=== PATIENT | male | born 1955 | race Caucasian/White ===

== ENCOUNTER 2016-09-17 22:52 | Emergency (ER) | payer MEDICAID ==
[2016-09-20 02:21] VITALS: BMI 26.3
== END 2016-09-17 23:45 | disposition home or self-care (01) ==
LOC: D.ER 22:52
DX: M25.562 Pain in left knee (principal); F17.200 Nicotine dependence, unspecified, uncomplicated

== ENCOUNTER 2016-09-18 22:06 | Emergency (ER) | payer MEDICAID ==
[2016-09-20 02:21] VITALS: BMI 26.3
== END 2016-09-18 23:50 | disposition home or self-care (01) ==
LOC: D.ER 22:06
DX: M54.30 Sciatica, unspecified side (principal); F17.200 Nicotine dependence, unspecified, uncomplicated

== ENCOUNTER 2016-09-19 23:19 | Observation (INO) | payer MEDICAID ==
[~2016-09-19] VITALS: Ht 175.3 cm; Wt 81.0 kg
--- NOTE | ~2016-09-19 | HEMODYNAMI ---
PATIENT:ARPIT DAVIS MEDICAL RECORD: [id number] : 51 LOCATION:[address] [id number] ADMISSION DATE: 09/20/16 Generatedon:09/20/201615:04 Patient name: ARPIT DAVIS Patient #: [id number] SSN: : Date of study: 09/20/2016 Page: Of Hemodynamic Procedure Report Patient Data Patient Demographics Procedure consent was obtained First Name: ARPIT Gender: Male Last Name: RYAN : 1955 Middle Initial: W Age: 61 year(s) Patient #: [id number] Race: Unknown Additional ID: [id number] Contact details Address: [address] [place] [address] State: [place] City: [place] Zip code: [address] Past Medical History Allergies: No known allergies Admission Admission Data Admission Date: 09/20/2016 Admission Time: 1:21 Admit Source: Other Room #: .2126 Lab Results Lab Result Date: 09/20/2016 Lab Result Time: 0:00 Biochemistry Name Units Result Min Max Creatinine mg/dl 1 --(--*-)-- 0.6 1.3 CBC Name Units Result Min Max Hemoglobin g/dl 15 --(-*--)-- 13.5 17.5 Procedure Procedure Types Cath Procedure Diagnostic Procedure [facility] w/Coronaries Miscellaneous Procedures Moderate Sedation up to 30 minutes Procedure Description Procedure Date Procedure Date: 09/20/2016 Procedure Start Time: 14:51 Procedure End Time: 15:03 Procedure Staff Name Function Enoc Dixon MD Performing Physician Scott Gurerero RT Scrub Minh Pereira RN Nurse Jennyfer Garcia RT Monitor Procedure Data Cath Procedure Fluoroscopy Diagnostic fluoroscopy Total fluoroscopy Time: 2.4 time: 2.4 min min Diagnostic fluoroscopy Total fluoroscopy dose: 341 dose: 341 mGy mGy Contrast Material Contrast Material Type Amount (ml) Isovue 300 46 Entry Location Entry Primary Successful Side Size Upsize Upsize Entry Closure Terrazas ccessful Closure Location (Fr) 1 (Fr) 2 (Fr) Remarks Device Remarks Radial Right 6 Fr Mechanical artery Short Compression Estimated blood loss: 5 ml Diagnostic catheters Device Type Used For End Catheter Placement Terumo 5Fr [place] 110cm LV Angiography catheter Terumo 5Fr [place] 110cm Left Coronary catheter Angiography Terumo 5Fr [place] 110cm Right Coronary catheter Angiography Procedure Complications No complications Procedure Medications Medication Administration Route Dosage Oxygen NC 2 l/min Heparin Flush Bag added to field 2 bags (1000units/500ml NS) 0.9% NaCl I.V. 100 ml/hr Radial Cocktail added to field 1 syringe (Verapomil 2mg/Nitro 400mcg/Heparin 1500units) Fentanyl I.V. 50 mcg Versed I.V. 1 mg Radial Cocktail I.A. 1 syringe (Verapomil 2mg/Nitro 400mcg/Heparin 1500units) Fentanyl I.V. 50 mcg Versed I.V. 1 mg Hemodynamics Rest HGB: 15 (g/dl) Heart Rate: 59 (bpm) Pressure Samples Time Site Value (mmHg) Purpose Heart Use Rate(bpm) 14:55 LV 108/5,18 EDP 59 14:56 AO 104/62(80) Pullback 59 14:56 LV 103/10,14 Pullback 59 Gradients Valve Time Site 1 Site 2 Mean SEP/DFP Peak To Heart Use (mmHg) (sec/min) Peak Rate (mmHg) (bpm) Aortic 14:56 LV AO 0 2 0 59 103/10,14 104/62(80) Calculations Valve P-P Mean Valve Index Valve Source Name Gradient Area Flow (cm2) Aortic 0 0 0 0 Snapshots Pre Cath Intra NCS Post Cath Vital Signs Time Heart Resp SPO2 NIBP (mmHg) Rhythm Pain Sedation Rate (ipm) (%) Status Level (bpm) 14:30:25 56 17 99 130/67(92) NSR 0 (11) 10(A) , No pain 14:34:39 54 20 97 121/68(88) NSR 0 (11) 10(A) , No pain 14:38:49 57 18 97 124/68(92) NSR 0 (11) 10(A) , No pain 14:42:59 58 18 97 124/72(101) NSR 0 (11) 10(A) , No pain 14:47:13 55 17 98 127/63(97) NSR 0 (11) 9(A) , No pain 14:51:27 58 17 96 126/66(99) NSR 0 (11) 9(A) , No pain 14:55:40 59 19 96 101/64(89) NSR 0 (11) 9(A) , No pain 14:59:46 59 20 96 115/64(98) NSR 0 (11) 9(A) , No pain Medications Time Medication Route Dose Verified Delivered Reason Notes Effectiveness by by 14:32:17 Oxygen NC 2 l/min Minh Wilkinson Per Randall Pereira RN physician RN 14:32:25 Heparin Flush added 2 bags Minh Wilkinson used for Bag to Randall Pereira RN procedure (1000units/500ml RN NS) 14:32:39 0.9% NaCl I.V. 100 Minh Minh Per ml/hr Randall Pereira RN physician RN 14:33:05 Radial Cocktail added 1 Minh Wilkinson used for (Verapomil to syringe Randall Pereira RN procedure 2mg/Nitro RN 400mcg/Heparin 1500units) 14:44:04 Fentanyl I.V. 50 mcg Minh Wilkinson for sedation Randall Pereira RN RN 14:44:12 Versed I.V. 1 mg Minh Wilkinson for sedation Randall Pereira RN RN 14:52:37 Radial Cocktail I.A. 1 Minh De La Vegaory for (Verapomil syringe Randall Kathleen John vasodilation 2mg/Nitro RN MD 400mcg/Heparin 1500units) 14:53:41 Fentanyl I.V. 50 mcg Minh Wilkinson for sedation Randall Pereira RN RN 14:53:45 Versed I.V. 1 mg Minh Billsy for sedation Randall Pereira RN labor relations or personnel negotiator Log Time Note 13:57:27 Informed consent obtained and on chart 13:57:32 Admit Source: Other 13:57:56 Diagnostic Cath status Elective 13:57:58 Minh Pereira RN sent for patient. Start room use. 13:57:59 Time tracking: Regular hours 13:58:02 Plan of Care:Hemodynamics will remain stable., Cardiac rhythm will remain stable., Comfort level will be maintained., Respiratory function will remain adequate., Patient/ family verbilizes understanding of procedure., Procedure tolerated without complication., Recovers from procedure without complications.. 14:17:43 Patient received from PCU to CCL 2 Alert and oriented. Tansferred to table in Supine position. 14:17:44 Warm blankets applied, and tricia hugger turned on for patient comfort. 14:17:44 Correct patient and procedure confirmed by team. 14:17:45 ECG and BP/O2 sat monitors applied to patient. 14:17:46 Full Disclosure recording started 14:29:11 Vital chart was started 14:31:47 Rhythm: sinus rhythm 14:32:17 Oxygen 2 l/min NC was administered by Minh Pereira RN; Per physician; 14:32:25 Heparin Flush Bag (1000units/500ml NS) 2 bags added to field was administered by Minh Pereira RN; used for procedure; 14:32:34 H&P Date Dictated: 09/20/2016 Within 30 days and on chart.. 14:32:35 Pre-procedure instructions explained to patient. 14:32:35 Pre-op teaching completed and patient verbalized understanding. 14:32:36 Family in waiting room. 14:32:38 Patient NPO since Midnight. 14:32:39 0.9% NaCl 100 ml/hr I.V. was administered by Minh Pereira RN; Per physician; 14:33:01 Patient allergic to No known allergies 14:33:03 Is the patient allergic to Iodine/contrast media? No. 14:33:05 Radial Cocktail (Verapomil 2mg/Nitro 400mcg/Heparin 1500units) 1 syringe added to field was administered by Minh Pereira RN; used for procedure; 14:33:05 Is patient on blood thinner?No 14:33:07 Patient diabetic? No. 14:33:09 Previous problem with sedation/anesthesia? No ? 14:33:10 Snore? No 14:33:11 Sleep apnea? No 14:33:12 Deviated septum? No 14:33:13 Opens mouth fully? Yes 14:33:13 Sticks out tongue? Yes 14:33:15 Airway obstruction? No ? 14:33:17 Dentures? No ? 14:33:19 Pre procedure: right dorsailis pedis pulse 2+ Normal; easily identifiable; not easily obliterated 14:33:20 Modified Ceferino's test Ulnar < 7 seconds 14:33:22 Patient pain scale 0/10 ?. 14:33:46 IV patent on arrival in left hand with 0.9% NaCl at [facility]. 14:35:32 Lab Result : Creatinine 1 mg/dl 14:35:32 Lab Result : Hemoglobin 15 g/dl 14:35:36 Lab results completed and on chart. 14:35:39 Right Radial & Right Groin area was prepped with chlora-prep and draped in sterile fashion 14:35:40 Alarms reviewed by R. N. 14:35:40 Sharps counted by scrub and verified by R.N. 14:35:43 Use device set Radial Dx 14:35:44 Acist Syringe opened to sterile field. 14:35:45 Medline Cath Pack opened to sterile field. 14:35:45 Bag Decanter opened to sterile field. 14:35:46 Terumo 6Fr Slender Glidesheath opened to sterile field. 14:35:46 [place] Vas[place] 260cm J .035 wire opened to sterile field. 14:35:47 Acist Hand Control opened to sterile field. 14:35:47 Acist Manifold opened to sterile field. 14:35:48 Tegaderm 4 x 4 opened to sterile field. 14:35:48 MBrace Wrist Support opened to sterile field. 14:36:27 Baseline sample Acquired. 14:43:34 Final Timeout: patient, procedure, and site verified with staff and physician. All members of the team are in agreement. 14:43:37 Right Radial site verified by team. 14:43:40 Physical assessment completed. ASA score P 2 - A patient with mild systemic disease as per Enoc Dixon MD. 14:43:43 Sedation plan: IV Moderate Sedation Versed, Fentanyl 14:44:04 Fentanyl 50 mcg I.V. was administered by Minh Pereira RN; for sedation; 14:44:12 Versed 1 mg I.V. was administered by Minh Pereira RN; for sedation; 14:46:32 Zero performed for pressure channel P1 14:46:37 Zero performed for pressure channel P1 14:46:45 Zero performed for pressure channel P1 14:51:22 Procedure started. 14:51:39 Local anesthetic to right radial artery with Lidocaine 2% by Enoc Dixon MD.INITIAL ACCESS ONLY 14:52:37 Radial Cocktail (Verapomil 2mg/Nitro 400mcg/Heparin 1500units) 1 syringe I.A. was administered by Enoc Dixon MD; for vasodilation; 14:52:40 A 6 Fr Short sheath was inserted into the Right Radial artery 14:52:59 A Terumo 5Fr [place] 110cm catheter was advanced over the wire and used for LV Angiography. 14:53:41 Fentanyl 50 mcg I.V. was administered by Minh Pereira RN; for sedation; 14:53:45 Versed 1 mg I.V. was administered by Minh Pereira RN; for sedation; 14:55:43 LV gram done using STALEY 14:55:45 LV hemodynamics recorded. 14:55:47 Injector settings: Ml/sec: 5, Volume: 15, 14:55:59 EF : 25 % 14:56:29 A Terumo 5Fr [place] 110cm catheter was advanced over the wire and used for Left Coronary Angiography. 14:57:49 A Terumo 5Fr [place] 110cm catheter was advanced over the wire and used for Right Coronary Angiography. 14:57:55 Catheter removed. 14:58:01 Terumo TR Band Standard opened to sterile field. 14:58:13 Sheath removed intact; hemostasis achieved with Mechanical Compression to the Right Radial artery. 14:58:15 Procedure ended.(Physican Out) 14:58:21 Fluoroscopy time 02.40 minutes. 14:58:25 Fluoroscopy dose: 341 mGy 14:58:25 Flurop Dose total: 341 14:58:28 Contrast amount:Isovue 300 46ml. 14:58:29 Sharps counted by scrub and verified by R.N. 14:58:32 TR band inflated with 10cc of air. 14:58:33 Insertion/operative site no bleeding no hematoma. 14:58:42 Post right radial artery:stable, clean and dry 14:58:43 Post Procedure Pulses reassessed and unchanged 14:58:46 Post-procedure physical assessment completed. ASA score P 2 - A patient with mild systemic disease as per Enoc Dixon MD. 14:58:48 Post procedure rhythm: unchanged. 14:58:56 Estimated blood loss: 5 ml 14:58:58 Post procedure instruction explained to patient.Patient verbalizes understanding. 14:58:58 Patient needs reinforcement of post procedure teaching. 14:59:10 Procedure type changed to Cath procedure, Diagnostic procedure, LHC, LHC w/Coronaries, Miscellaneous Procedures, Moderate Sedation up to 30 minutes 14:59:49 Procedure Complication : No complications 14:59:52 See physician's report for complete and final results. 15:01:09 Report given to PCU. 15:02:25 Procedure and supply charges have been captured, reviewed, submitted and are correct. 15:02:34 Vital chart was stopped 15:03:06 Patient transfered to PCU with Bed. 15:03:08 Procedure ended. 15:03:08 Full Disclosure recording stopped 15:03:26 End room use (Document Last) Device Usage Item Name Manufacture Quantity Catalog Hospital Part Current Minimal Lot# / Number Charge Number Stock Stock Serial# Code Acist Acist 1 35947 964054 921973 113037 20 Syringe [employer] Inc Medline Cardinal 1 [id number] 03786 613623 5 Cath Pack Health Bag Microtek 1 2002S 710718 89623 204832 5 [employer] Terumo 6Fr Terumo 1 [id number] [id number] 980187 850231 [address] St Vasiliy 1 920495 449478 130321 699186 30 260cm J .035 wire Acist Hand Acist 1 62832 139021 663430 951680 5 Control [employer] Inc Acist Acist 1 97157 239783 190750 968604 5 Manifold Medical [employer] Inc Tegaderm 4 3M 1 1626W 677869 491490 091297 5 x 4 MBrace Advanced 1 140-0250-00 139249 93407 944925 5 Wrist Vascular Support Dynamics Terumo 5Fr Terumo 1 40-6764 888393 822122 138243 5 [place] 110cm catheter Terumo TR Terumo 1 [id number] 561025 844127 359378 40 Band Standard Signature Audit [place] Stage Time Signature Unsigned Intra-Procedure 09/20/2016 Jennyfer 3:04:40 PM Counts RT(R) Signatures Monitor : Jennyfer Signature : Counts RT Date : Time : [facility] [address] [place] [address]
--- NOTE | ~2016-09-19 | OP ---
PATIENT NAME: ARPIT DAVIS MEDICAL RECORD: [id number] :51 LOCATION:D.M2 D.2126 ADMISSION DATE:09/20/16 SURGEON: JAYA ORTIZ MD DATE OF OPERATION: 09/20/2016 PROCEDURE: Left heart catheterization, selective coronary angiography, right radial approach. CATHETERS: [place] catheter 5-Danish sheath. The procedure was well tolerated. The patient returned to the cunningham. Sheath removed. TR band was placed. FINDINGS: Left ventriculography in 30-degree STALEY view shows severe global hypokinesis, reduced EF of 15% to 20%. CORONARY ANATOMY: Left main: Left main is free of disease. LAD: Free of disease in the diagonal system. CIRCUMFLEX: Free of disease in the marginal system. RIGHT CORONARY ARTERY: Dominant artery, gives rise to PDA, free of disease. IMPRESSION: Nonischemic cardiomyopathy, EF 15% to 20%. We will start MACK inhibitor. Pressure is a little large, we will add beta blockade at this point. Further recommendations based on clinical course. TRANSINT:[id number] Voice Confirmation ID: [id number] DOCUMENT ID: [id number] JAYA ORTIZ MD CC: [id number] DICTATION DATE: 09/20/16 1509 BATCH OPERATOR: 09/21/16 0048 DIS IN 09/20/16 [facility] [address] [id number]
[2016-09-19 23:58] LABS: BASOPHILS 0.5 % (0.0-2.0); EOSINOPHILS 4.2 % (0-7); HEMATOCRIT 45.2 % (42.0-54.0); IMMATURE GRANULOCYTES 0.2 % (0-5); LYMPHOCYTES 30.4 % (15-50); MCH 29.5 pg (26.0-34.0); MCHC 33.2 g/dL (31.0-37.0); MEAN PLATELET VOLUME 10.4 fL (7.4-10.4); MONOCYTES 11.3 % (2-11); NEUTROPHILS 53.4 % (40-80); PLATELET COUNT 258 10x3/uL (130-400); RBC 5.08 10x6/uL (4.20-6.10); RDW 12.8 % (11.5-14.5); WBC 8.1 10x3/uL (4.8-10.8)
[2016-09-20 00:14] LABS: ALBUMIN 3.9 g/dL (3.4-5.0); ALKALINE PHOSPHATASE 63 U/L (46-116); ALT (SGPT) 53 U/L (10-68); BILIRUBIN - TOTAL 0.58 mg/dL (0.2-1.3); CALC OSMOLALITY 280 mosm/kg (275-300); CALCIUM 8.5 mg/dL (8.5-10.1); CHLORIDE - SERUM 103 mmol/L (98-107); GLUCOSE 93 mg/dL (74-106); POTASSIUM - SERUM 3.6 mmol/L (3.5-5.1); PROTEIN - SERUM 7.7 g/dL (6.4-8.2); SODIUM 140 mmol/L (136-145); UREA NITROGEN 19 mg/dL (7-18); eGFR NON AFRICAN AMERICAN 80 mL/min (90-120)
[2016-09-20 00:31] LABS: CHOL - HDL RATIO 2.3 ratio (2.3-4.9); CHOLESTEROL, TOTAL 128 mg/dL (0-200); CKMB 7.5 U/L (0.0-3.6); CREATINE KINASE 285 UL (21-232); HDL CHOLESTEROL 56 mg/dL (32-96); LDL CHOLESTEROL 60 mg/dL (0-100); LDL-HDL RATIO 1.1 ratio (1.5-3.5); TRIGLYCERIDE 62 mg/dL (30-200); TROPONIN-I 0.026 ng/mL (0.000-0.060)
--- NOTE | 2016-09-20 02:09 | NUR ---
PT ARRIVED VIA W/C FORM ER WITH DX ANGINA AND HTN. NO DISTRESS NOTED. WILL CONTINUE TO MONITOR.
[2016-09-20 02:21] VITALS: BP 153/80; Ht 175.3 cm; Wt 81.0 kg
--- NOTE | 2016-09-20 02:39 | NUR ---
ADMISSION ASSESSMENT, HISTORY AND HOME MED LIST COMPLETED. PT REFUSES PNEUMONIA VACCINE AND FLU SHOT. PT STATED HE NEVER HAD ANY CP , ONLY CHRONIC BACKA ND KNEE PAIN. PT RAMBLING, GETTING OFF THE SUBJECT FREQUENTLY. STATES WE ARE TO CALL HIS FRIEND BELLO FROM BUT DOESN'T KNOW LAST NAME OF PHONE NUMBER IN CASE OF AN EMERGENCY. O2 2LNC. VSS, SR WITH BBB AND DEPRESSED ST SEGMENT HR 64. IV TO L HAND SL. LUNGS DIMINISHED IN BASES BILAT. WILL CONTINUE TO MONITOR. SR UP X2,CALL LIGHT WITHIN REACH.
--- NOTE | 2016-09-20 04:47 | NUR ---
PT AWAKE;DENIES ANY DISCOMFORT. WILL CONTINUE TO MONITOR.
--- NOTE | 2016-09-20 06:42 | NUR ---
VSS. SR/SB PER CM. PT NPO UNTIL SEEN BY DR. ORTIZ. DENIES ANY DISCOMFORT. NEEDS MET; WILL CONTINUE TO MONITOR.
[2016-09-20 07:18] LABS: CKMB 5.8 U/L (0.0-3.6); CREATINE KINASE 193 UL (21-232); TROPONIN-I 0.023 ng/mL (0.000-0.060)
[2016-09-20 08:00] VITALS: BP 136/73
--- NOTE | 2016-09-20 11:16 | NUR ---
ALERT AND ORIENTED X4. RESTING IN BED. NPO FOR IT DESKTOP SUPPORT SPECIALIST. CONSENTS FOR IT DESKTOP SUPPORT SPECIALIST SIGNED ON CHART. DENIES SOB OR PAIN. SINUS JENNI 49bpm BBB WITH DEPRESSED ST SEG. ON TELEMETRY. CONTINUE PLAN OF CARE AND SAFETY PRECAUTIONS.
[2016-09-20 12:00] VITALS: BP 123/60
--- NOTE | 2016-09-20 12:40 | CN ---
PATIENT NAME:ARPIT DAVIS MEDICAL RECORD: [id number] : 51 LOCATION:D. D.2126 ADMIT DATE: 09/20/16 ACCOUNT: [id number] CONSULTING PHYSICIAN: JAYA ORTIZ MD REFERRING PHYSICIAN: JAYA ORTIZ MD DATE OF CONSULTATION: 09/20/2016 Cardiology Consultation HISTORY OF PRESENT ILLNESS: A 61-year-old gentleman with questionable history of cardiovascular disease. He told the EMS, he had heart damage, difficult to obtain ____. He has been having intermittent chest pain, pressure and tightness ____ angina and or myopathic symptoms, presented to the ER with worsening symptomatology. He does have a left bundle-branch on 12-lead. We are asked to see him concerning his cardiovascular status. PAST MEDICAL HISTORY: Includes: 1. History of hypertension. 2. Questionable history of cardiomyopathy. ALLERGIES: None known. MEDICATIONS: None currently (____ antihypertensives previously). SOCIAL HISTORY: He is currently homeless, does smoke less than a pack a day. REVIEW OF SYSTEMS: The patient reports easy bruising but reports no swollen glands. The patient reports no fever, no night sweats, no significant weight gain, no significant weight loss. No significant exercise tolerance. The patient reports no dry eyes, no irritation, no vision change. Patient reports no difficulty hearing and no ear pain. Patient reports no frequent nose bleeds or nose and sinus problems. Patient reports on arm pain on exertion. No shortness of breath while lying down. No history of heart murmur. Patient reports no cough, no wheezing or coughing up blood. Patient reports no abdominal pain, no vomiting. Normal appetite. No diarrhea and not vomiting blood. No nausea and no constipation. Patient reports no incontinence. No difficulty urinating. No hematuria. No increased frequency. Patient reports no muscle aches. No weakness, no arthralgias, no back pain. No swelling of the extremities. Patient reports no abnormal mole, no jaundice, no rashes. Reports no loss of consciousness. No weakness and no numbness. No seizures, dizziness, or headaches. The patient reports no depression, no sleep disturbance, feeling safe in a relationship and no alcohol abuse. Patient reports on fatigue. Reports no runny nose or sinus pressure. No itching, no hives, and no frequent sneezing. PHYSICAL EXAMINATION: GENERAL: Somewhat unkempt gentleman in no acute distress, pleasant and cooperative. VITAL SIGNS: Blood pressure 130/80, pulse 64 and regular. HEENT: Normocephalic and atraumatic. NECK: No bruits noted. HEART: Regular, questionable S3 gallop. LUNGS: Prolonged expiratory phase. ABDOMEN: Soft and nontender. EXTREMITIES: Pulses 2+. There is no edema. CONSULT REPORT [id number] ARPIT DAVIS NEUROLOGIC: Grossly intact. DIAGNOSTIC DATA: ECG showed left bundle-branch block. IMPRESSION: Progressive angina. PLAN: We will plan for diagnostic angiography, intervention based on the above. TRANSINT:[id number] Voice Confirmation ID: [id number] DOCUMENT ID: [id number] JAYA ORTIZ MD at 1240 CC: [id number] DICTATION DATE: 09/20/16813 VAT WASHER: 09/20/16 1040 ADM IN [address] [id number] [place] [address]
[2016-09-20 13:01] LABS: CKMB 5.8 U/L (0.0-3.6); CREATINE KINASE 171 UL (21-232); TROPONIN-I 0.018 ng/mL (0.000-0.060)
--- NOTE | 2016-09-20 14:35 | NUR ---
ALERT AND ORIENTED X4. PRE-OP COMPLETE. TAKEN TO CAD MANAGER VIA BED. CONTINUE PLAN OF CARE AND SAFETY PRECAUTIONS.
--- NOTE | 2016-09-20 15:20 | NUR ---
SEDATED. AROUSES TO VOICE. SINUS JENNI 57bpm BBB ON TELEMETRY. RT WRIST TR BAND ON. FREE FROM BLEEDING. NO HEMATOMA. BP-99/57, T-96.5 AXILLARY, O2-99% 2LNC, R-16. CONTINUE PLAN OF CARE AND SAFETY PRECAUTIONS.
[2016-09-20] MEDS ORDERED: LISINOPRIL10 MG PO (15:43)
--- NOTE | 2016-09-20 18:38 | NUR ---
ALERT AND ORIENTED X4. RT WRIST TR BAND REMOVED. FREE FROM BLEEDING. NO HEMATOMA. DISCHARGE INSTRUCTIONS GIVEN VERBALLY AND WRITTEN. WRITTEN PRESCRIPTION PROVIDED. NO RIDE. TAXI OFFERED. LIVES ON THE STREET. REFUSE TAXI. PATIENT STATES, "FUCK ALL YOU FOR KICKING ME OUT AND NOT LETTING ME SLEEP. 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 JUST GIVE ME THE DAMN PAPERS AND I WILL GET OUT OF YOU'RE HAIR. YOU CAN TELL THAT DOCTOR I WON'T BE AT THAT APPOINTMENT." DC LT HAND IV TIP INTACT.
--- NOTE | 2016-09-20 19:00 | NUR ---
WALKED OFF THE FLOOR INDEPENDENTLY.
== END 2016-09-20 19:01 | disposition home or self-care (01) ==
LOC: D.ER 23:19 → D.M2 09-20 01:21 → OBSVTIME 09-20 01:21 → D.M2 09-20 01:21
PROVIDERS: Emergency Medicine; ADMIT Internal Medicine Interventional Cardiology
DX: I42.9 Cardiomyopathy, unspecified (principal); I44.7 Left bundle-branch block, unspecified; I10 Essential (primary) hypertension; Z59.0 Homelessness; Z72.0 Tobacco use

== ENCOUNTER 2016-09-27 11:55 | Emergency (ER) | payer MEDICAID ==
[2016-09-20 02:21] VITALS: BMI 26.3
[~2016-09-27 11:55] MED LIST: LISINOPRIL10 MG PO
== END 2016-09-27 17:58 | disposition left against medical advice (07) ==
LOC: D.ER 11:55
DX: M54.9 Dorsalgia, unspecified (principal)

== ENCOUNTER 2016-09-30 14:09 | Emergency (ER) | payer MEDICAID | END 2016-09-30 16:32 | disposition home or self-care (01) | LOC: D.ER 14:09 | DX: M62.838 Other muscle spasm (principal); T14.8 Other injury of unspecified body region; X58.XXXA Exposure to other specified factors, initial encounter; Y93.89 Activity, other specified; Y92.89 Other specified places as the place of occurrence of the external cause; M54.5 Low back pain; M16.12 Unilateral primary osteoarthritis, left hip; I10 Essential (primary) hypertension; F17.200 Nicotine dependence, unspecified, uncomplicated ==

== ENCOUNTER 2016-10-29 14:12 | Emergency (ER) | payer MEDICAID ==
[2016-09-20 02:21] VITALS: BMI 26.3
== END 2016-10-29 17:11 | disposition left against medical advice (07) ==
LOC: D.ER 14:12
DX: M79.605 Pain in left leg (principal)

== ENCOUNTER 2017-01-03 21:46 | Inpatient (IN) | payer MEDICAID ==
[~2017-01-03] VITALS: Ht 175.3 cm; Wt 80.2 kg
[2017-01-03 22:34] LABS: BASOPHILS 0.8 % (0-2); HEMATOCRIT 41.7 % (42.0-54.0); HEMOGLOBIN 14.1 g/dL (13.5-17.5); IMMATURE GRANULOCYTES 0.1 % (0-5); LYMPHOCYTES 28.9 % (15-50); MCH 30.1 pg (26.0-34.0); MCHC 33.8 g/dL (31.0-37.0); MCV 89.1 fL (80.0-100.0); MEAN PLATELET VOLUME 9.9 fL (7.4-10.4); MONOCYTES 9.1 % (2-11); NEUTROPHILS 57.1 % (40-80); PLATELET COUNT 271 10x3/uL (130-400); RBC 4.68 10x6/uL (4.20-6.10); RDW 13.3 % (11.5-14.5); WBC 7.7 10x3/uL (4.8-10.8)
[2017-01-03 23:00] LABS: ALBUMIN 3.4 g/dL (3.4-5.0); ALKALINE PHOSPHATASE 57 U/L (46-116); ALT (SGPT) 47 U/L (10-68); CALC OSMOLALITY 280 mosm/kg (275-300); CALCIUM 8.3 mg/dL (8.5-10.1); CARBON DIOXIDE 30.4 mmol/L (21.0-32.0); CHLORIDE - SERUM 104 mmol/L (98-107); GLUCOSE 126 mg/dL (74-106); POTASSIUM - SERUM 3.5 mmol/L (3.5-5.1); PROTEIN - SERUM 7.2 g/dL (6.4-8.2); SODIUM 141 mmol/L (136-145); UREA NITROGEN 8 mg/dL (7-18); eGFR NON AFRICAN AMERICAN 80 mL/min (90-120)
[2017-01-03 23:29] LABS: CKMB 6.1 U/L (0.0-3.6); CREATINE KINASE 253 UL (21-232); DIGOXIN 0.19 ng/mL (0.90-2.00); PRO BNP 8836 pg/mL (0-125)
--- NOTE | 2017-01-04 01:01 | NUR ---
RECEIVED PT FROM ER, PT REST IN BED, ALERT AND ORIENTED, SRX2, CALL LIGHT WITHIN REACH.
[2017-01-04 01:13] LABS: TROPONIN-I 0.027 ng/mL (0.000-0.060)
--- NOTE | 2017-01-04 01:55 | NUR ---
REST QUIETLY IN BED, EYE CLOSE,CALL LIGHT WITHIN REACH.
[2017-01-04 02:16] VITALS: BMI 28.1
--- NOTE | 2017-01-04 02:43 | NUR ---
DISBURSING OFFICER ASSESSMENT COMPLETED. EXPLAINED IMPORTANCE OF MEASURING INTAKE AND OUTPUT. PLAN OF CARE INITIATED.
[2017-01-04 04:00] VITALS: BP 148/81
[2017-01-04 06:58] LABS: CKMB 6.5 U/L (0.0-3.6); CREATINE KINASE 223 UL (21-232); TROPONIN-I 0.019 ng/mL (0.000-0.060)
--- NOTE | 2017-01-04 07:40 | NUR ---
SITTING UP IN CHAIR TALKING ON PHONE. DENIES ANY PAIN OR ANY CONCERNS. ALERT AND ORIENTED. CALL LIGHT IN REACH. WILL CONTINUE TO MONITOR.
[2017-01-04 11:00] VITALS: BP 132/98
--- NOTE | 2017-01-04 11:34 | NUR ---
PT UP AD MOUSTAPHA TO BATHROOM, PT STATES THAT HE WANT SCAT BUS NUMBER BECAUSE HE IS GOING TO [employer] IN THE AM TO GET HIS CERTIFICATE AND OTHER THINGS THAT HE NEEDS. PT STATED " THE SCAT BUS NEEDS TO BE NOTIFIED ONE DAY IN [place]VANCE SO THEY CAN COME PICK ME UP". INFORMED PT THAT HE IS IN THE HOSPITAL AND THAT HE MIGHT NOT GET DISCHARGED TOMORROW. PT STILL ASKING FOR SCAT BUS NUMBER. NAD NOTED, CALL LIGHT IN REACH, WILL CONTINUE TO MONITOR.
[2017-01-04 12:43] VITALS: BP 157/87
[2017-01-04 13:02] VITALS: Ht 175.3 cm; Wt 80.2 kg
[2017-01-04 13:24] LABS: CKMB 6.9 U/L (0.0-3.6); CREATINE KINASE 230 UL (21-232); TROPONIN-I 0.019 ng/mL (0.000-0.060)
--- NOTE | 2017-01-04 13:27 | NUR ---
PT REFUSES TO WEAR SCD'S STATES THAT HE DOES NOT WANT TO FEEL RESTRAINED. PT IS ON LOVENOX WELL.
[2017-01-04 16:50] VITALS: BP 132/97
--- NOTE | 2017-01-04 17:34 | NUR ---
ADMINISTERED COREG ORDER, PT IN BED, DENIES ANY NEEDS AT THIS TIME. CALL LIGHT IN REACH, NAD NOTED, WILL CONTINUE TO MONITOR.
--- NOTE | 2017-01-04 19:41 | NUR ---
PT AWAKE, ALERT, ORIENTED, DENIES ANY NEEDS. CONTINUE TO MONITOR CLOSELY. BED LOW, CALL LIGHT IN REACH, SIDE RAILS X 2, HOB 30 DEGREES.
[2017-01-04 20:00] VITALS: BP 133/74
[2017-01-04 21:50] LABS: UDS - AMPHET NEGATIVE QUAL (NEGATIVE); UDS - BARB NEGATIVE QUAL (NEGATIVE); UDS - BENZO NEGATIVE QUAL (NEGATIVE); UDS - COCAINE NEGATIVE QUAL (NEGATIVE); UDS - METH NEGATIVE QUAL (NEGATIVE); UDS - OPIATE NEGATIVE QUAL (NEGATIVE); UDS - PCP NEGATIVE QUAL (NEGATIVE); UDS - THC NEGATIVE QUAL (NEGATIVE)
[2017-01-05] VITALS: BP 137/82
--- NOTE | 2017-01-05 00:32 | NUR ---
PT RESTING COMFORTABLY, TURKEY SANDWICH AND GRAPES GIVEN EARLIER. DENIES ANY NEEDS. CONTINUE TO MONITOR CLOSELY.
--- NOTE | 2017-01-05 03:56 | NUR ---
PT UP WALKING AROUND UNIT DRINKING COFFEE AT THIS TIME.
[2017-01-05 04:00] VITALS: BP 127/63
[2017-01-05 05:29] LABS: BASOPHILS 0.4 % (0-2); EOSINOPHILS 6.4 % (0-7); HEMATOCRIT 45.6 % (42.0-54.0); HEMOGLOBIN 15.8 g/dL (13.5-17.5); IMMATURE GRANULOCYTES 0.1 % (0-5); LYMPHOCYTES 32.1 % (15-50); MCH 30.9 pg (26.0-34.0); MCHC 34.6 g/dL (31.0-37.0); MCV 89.2 fL (80.0-100.0); MEAN PLATELET VOLUME 10.5 fL (7.4-10.4); MONOCYTES 11.5 % (2-11); NEUTROPHILS 49.5 % (40-80); PLATELET COUNT 289 10x3/uL (130-400); RBC 5.11 10x6/uL (4.20-6.10); RDW 13.4 % (11.5-14.5); WBC 7.2 10x3/uL (4.8-10.8)
[2017-01-05 05:49] LABS: ANION GAP 11.3 mmol/L (8-16); CALCIUM 9.3 mg/dL (8.5-10.1); CARBON DIOXIDE 32.2 mmol/L (21.0-32.0)
[2017-01-05 05:56] LABS: CREATININE - SERUM 1.4 mg/dL (0.6-1.3); POTASSIUM - SERUM 4.5 mmol/L (3.5-5.1)
--- NOTE | 2017-01-05 07:30 | NUR ---
AM ROUNDING- RECEIVED REPORT FROM COMPUTER BUILDER NURSE BRENTON. PT IS CURRENTLY WALKING AROUND ROOM. PT IS APPEARS ANXIOUS STATING " SOMEONE STOLE MY FOOD STAMPS". PER REPORT PT HAS BEEN ANXIOUS BECAUSE HE REPORTS SOMEONE HAS STOLEN HIS FOOD STAMP CARD. PT IS ON ROOM AIR. ON MONITOR SHOWING ST, HR 113. IV SEEN TO RIGHT FOREARM THAT IS CURRENTLY SALINE LOCKED. NO NEED AT CURRENT TIME. WILL CONTINUE TO MONITOR AND CONTINUE WITH PLAN OF CARE.
--- NOTE | 2017-01-05 10:19 | NUR ---
PT IS UP WALKING AROUND NURSES STATION, I APPROACHED PT TO HELP TIE BACK OF GOWN SO PT IS NOT EXPOSED TO OTHERS ON UNIT. PT SMELLS LIKE CIGARETTES, I ASKED PT IF HE HAD WENT TO SMOKE AND PT REPLIES "NO". I STATED TO PT HE SMELT LIKE CIGARETTES AND I WAS ASKING BECAUSE PT IS WEARING NICOTINE PATCH AND INFORMED PT OF HARMFUL SIDE EFFECTS OF SMOKING AND HAVING NICOTINE PATCH ON. PT STATES "I HAVE BEEN SMOKING FOR OVER 50 YEARS". ASSISTED PT BACK TO ROOM AND GAVE PT CUP OF COFFEE REQUESTED. WILL CONTINUE TO MONITOR.
[2017-01-05] MEDS ORDERED: COREG 3.1253.125 MG PO (11:56)
[2017-01-05] MEDS ORDERED: ASPIRIN81 MG PO (11:57)
[2017-01-05] MEDS ORDERED: LASIX40 MG PO (11:59)
[2017-01-05 12:00] VITALS: BP 145/86
[2017-01-05] MEDS ORDERED: K-DUR20 MEQ PO (12:01)
--- NOTE | 2017-01-05 12:30 | NUR ---
PT IS CURRENTLY REQUESTING SOMETHING FOR PAIN FROM "TOES TO HIP". NO ORDER FOR ANYTHING FOR PAIN. MEL MCCARTNEY NP ON UNIT, INFORMED HER OF THIS. MEL MCCARTNEY NP STATES PT DID NOT C/O OF PAIN WHILE MAKING ROUNDS AND PT IS WANTING TO GO HOME. D/C ORDERES IN. WILL CONTINUE TO MONITOR.
--- NOTE | 2017-01-05 13:55 | NUR ---
D/C INSTRUCTIONS EXPLAINED TO PT. D/C PAPERWORK SIGNED BY PT AND PLACED IN CHART. HEART MONITOR RETURNED TO BRAYDEN IN TELEMETRY. IV TO RIGHT FOREARM REMOVED WITH CATH TIP INTACT, COVERED SITE WITH 2X2 GUAZE PADS AND SECURED WITH TAPE. AWAITING BUS TO CALL TO GET PT NOW. WILL CONTINUE TO MONITOR.
--- NOTE | 2017-01-05 14:09 | NUR ---
SCANT BUS HERE TO GET PT. PT D/C VIA WHEELCHAIR.
--- NOTE | 2017-01-05 15:10 | NUR ---
Patient Name: ARPIT DAVIS Admission Status: ER Accout number: [id number] Admission Date: 01-04-2017 : 1955 Admission Diagnosis: Attending: CACHORRO Current LOS: 1 Anticipated DC Date: 01-05-2017 Planned Disposition: Home Primary Insurance: MEDICAID [place] Discharge Planning Comments: * Is the patient Alert and Oriented? Yes 0 * How many steps to enter\exit or inside your home? 2 0 * PCP NONE REFERRED TO AND PROVIDED INFORMATION FOR [facility] 0 * Pharmacy [facility] ON [address] 0 * Preadmission Environment Home with Family 0 * ADLs Independent 0 * Equipment None 0 * Other Equipment NO MEDICAL EQUIPMENT PROVIDER PREFERENCE 0 * List name and contact numbers for known caregivers / representatives who currently or will assist patient after discharge: JULIA FINE, BROTHER, 0 * Community resources currently utilized Meals on Wheels 0 * Please name any agencies selected above. [facility] WHEEL[facility] 0 * Additional services required to return to the preadmission environment? No 0 * Can the patient safely return to the preadmission environment? Yes 0 * Has this patient been hospitalized within the prior 30 days at any hospital? No 0 CM MET WITH PT IN ROOM TO DISCUSS DISCHARGE PLANNING AND NEEDS. PT REPORTS LIVING AT HOME INDEPENDENTLY WITH HIS KIDS AND OTHER FAMILY MEMBERS. PT HAS NO MEDICAL EQUIPMENT AND NO OUTSIDE SERVICES ASSISTING IN THE HOME. CM DISCUSSED AVAILABILITY OF HOME HEALTH, REHAB SERVICES AND MEDICAL EQUIPMENT. PT HAS NO PRIMARY DOCTOR. CM PROVIDED PT WITH [facility] INFORMATION. PT DENIES DISCHARGE NEEDS, INITIALLY REPORTS HE WILL TAKE THE [facility] HOME AND THEN STATED A FRIEND (WOULD NOT GIVE NAME) WILL PICK HIM UP FOR DISCHARGE HOME. PT LATER ASKED FOR ASSISTANCE WITH TRANSPORT HOME. PT HAS TAKEN [place] TRANSPORTATION IN THE PAST. CM CALLED [facility] , ARRANGED TRANSPORT FOR TODAY WITH [facility], CONFIRMATION #[id number]. PT AND BEDSIDE NURSE NOTIFIED. Song And Dance Performer: Theron Gilmore
== END 2017-01-05 14:16 | disposition home or self-care (01) | DRG 292 ==
LOC: OBSVTIME → D.OPS 21:46 → D.ER 21:46 → D.OPS 23:57 → D.M2 23:58 → D.ER 23:58 → OBSVTIME 23:58 → D.M2 01-04 08:32
PROVIDERS: Family Medicine; ADMIT Family Medicine
DX: I50.9 Heart failure, unspecified (principal); F17.203 Nicotine dependence unspecified, with withdrawal; I24.8 Other forms of acute ischemic heart disease; I42.9 Cardiomyopathy, unspecified; I44.7 Left bundle-branch block, unspecified

== ENCOUNTER 2017-01-06 14:10 | Emergency (ER) | payer MEDICAID ==
[2017-01-04 13:02] VITALS: BMI 28.0
[~2017-01-06 14:10] MED LIST changes: +ASPIRIN81 MG PO; +COREG 3.1253.125 MG PO; +K-DUR20 MEQ PO; +LASIX40 MG PO
== END 2017-01-06 15:45 | disposition left against medical advice (07) ==
LOC: D.ER 14:10
DX: T67.5XXA Heat exhaustion, unspecified, initial encounter (principal); X58.XXXA Exposure to other specified factors, initial encounter; Y93.89 Activity, other specified; Y92.89 Other specified places as the place of occurrence of the external cause

== ENCOUNTER 2017-01-07 21:46 | Emergency (ER) | payer MEDICAID ==
[2017-01-04 13:02] VITALS: BMI 28.0
== END 2017-01-07 22:55 | disposition home or self-care (01) ==
LOC: D.ER 21:46
DX: Z71.1 Person with feared health complaint in whom no diagnosis is made (principal); F17.200 Nicotine dependence, unspecified, uncomplicated

== ENCOUNTER 2017-01-08 20:10 | Emergency (ER) | payer MEDICAID ==
[2017-01-04 13:02] VITALS: BMI 28.0
[2017-01-08 20:56] LABS: BASOPHILS 0.6 % (0-2); EOSINOPHILS 2.3 % (0-7); HEMATOCRIT 45.9 % (42.0-54.0); HEMOGLOBIN 15.4 g/dL (13.5-17.5); IMMATURE GRANULOCYTES 0.1 % (0-5); LYMPHOCYTES 28.9 % (15-50); MCH 30.1 pg (26.0-34.0); MCHC 33.6 g/dL (31.0-37.0); MCV 89.6 fL (80.0-100.0); MEAN PLATELET VOLUME 9.9 fL (7.4-10.4); NEUTROPHILS 56.1 % (40-80); PLATELET COUNT 260 10x3/uL (130-400); RBC 5.12 10x6/uL (4.20-6.10); RDW 13.2 % (11.5-14.5); WBC 7.1 10x3/uL (4.8-10.8)
[2017-01-08 21:05] LABS: ALBUMIN 3.7 g/dL (3.4-5.0); ANION GAP 8.4 mmol/L (8-16); BILIRUBIN - TOTAL 0.99 mg/dL (0.2-1.3); CALCIUM 8.7 mg/dL (8.5-10.1); CARBON DIOXIDE 32.3 mmol/L (21.0-32.0); CREATININE - SERUM 1.1 mg/dL (0.6-1.3); POTASSIUM - SERUM 3.7 mmol/L (3.5-5.1); PROTEIN - SERUM 7.9 g/dL (6.4-8.2)
[2017-01-08 21:08] LABS: TROPONIN-I 0.017 ng/mL (0.000-0.060)
[2017-01-08 21:30] LABS: APPEARANCE CLEAR (CLEAR); BILIRUBIN NEGATIVE (NEGATIVE); COLOR DK YELLOW (YELLOW); GLUCOSE NEGATIVE (NEGATIVE); KETONE NEGATIVE (NEGATIVE); LEUKOCYTE ESTERASE NEGATIVE (NEGATIVE); NITRITE NEGATIVE (NEGATIVE); PROTEIN NEGATIVE (NEGATIVE); SPECIFIC GRAVITY 1.025 (1.005-1.020)
[2017-01-08 21:37] LABS: UDS - AMPHET NEGATIVE QUAL (NEGATIVE); UDS - BARB NEGATIVE QUAL (NEGATIVE); UDS - BENZO NEGATIVE QUAL (NEGATIVE); UDS - COCAINE NEGATIVE QUAL (NEGATIVE); UDS - METH NEGATIVE QUAL (NEGATIVE); UDS - OPIATE NEGATIVE QUAL (NEGATIVE); UDS - PCP NEGATIVE QUAL (NEGATIVE); UDS - THC POSITIVE QUAL (NEGATIVE)
== END 2017-01-08 22:40 | disposition home or self-care (01) ==
LOC: D.ER 20:10
PROVIDERS: Emergency Medicine
DX: G62.9 Polyneuropathy, unspecified (principal); I10 Essential (primary) hypertension; F17.200 Nicotine dependence, unspecified, uncomplicated; I45.4 Nonspecific intraventricular block

== ENCOUNTER 2017-01-10 18:14 | Emergency (ER) | payer MEDICAID ==
[2017-01-04 13:02] VITALS: BMI 28.0
== END 2017-01-10 19:10 | disposition home or self-care (01) ==
LOC: D.ER 18:14
DX: I10 Essential (primary) hypertension (principal)

== ENCOUNTER → 2017-01-10 23:15 | Emergency (ER) | payer MEDICAID ==
[2017-01-04 13:02] VITALS: BMI 28.0
== END | disposition left against medical advice (07) ==
LOC: D.ER 23:15
DX: Z02.9 Encounter for administrative examinations, unspecified (principal)

== ENCOUNTER 2017-02-15 12:57 | Emergency (ER) | payer MEDICAID ==
[2017-01-04 13:02] VITALS: BMI 28.0
== END 2017-02-15 15:14 | disposition left against medical advice (07) ==
LOC: D.ER 12:57
DX: M25.562 Pain in left knee (principal)

== ENCOUNTER 2017-05-14 19:33 | Emergency (ER) | payer MEDICAID ==
[2017-01-04 13:02] VITALS: BMI 28.0
== END 2017-05-14 20:41 | disposition home or self-care (01) ==
LOC: D.ER 19:33
DX: M25.562 Pain in left knee (principal); I50.9 Heart failure, unspecified; I10 Essential (primary) hypertension; F17.200 Nicotine dependence, unspecified, uncomplicated; V03.90XA Pedestrian on foot injured in collision with car, pick-up truck or van, unspecified whether traffic or nontraffic accident, initial encounter; Y93.01 Activity, walking, marching and hiking; Y92.410 Unspecified street and highway as the place of occurrence of the external cause

== ENCOUNTER 2017-05-15 02:51 | Emergency (ER) | payer MEDICAID ==
[2017-01-04 13:02] VITALS: BMI 28.0
== END 2017-05-15 03:45 | disposition home or self-care (01) ==
LOC: D.ER 02:51
DX: R00.2 Palpitations (principal); F17.200 Nicotine dependence, unspecified, uncomplicated; I44.7 Left bundle-branch block, unspecified; I10 Essential (primary) hypertension

== ENCOUNTER 2017-07-01 13:56 | Emergency (ER) | payer MEDICAID ==
[2017-01-04 13:02] VITALS: BMI 28.0
== END 2017-07-01 15:44 | disposition home or self-care (01) ==
LOC: D.ER 13:56
DX: J20.9 Acute bronchitis, unspecified (principal); J06.9 Acute upper respiratory infection, unspecified; I10 Essential (primary) hypertension; F17.200 Nicotine dependence, unspecified, uncomplicated

== ENCOUNTER 2017-07-05 00:12 | Emergency (ER) | payer MEDICAID ==
[2017-01-04 13:02] VITALS: BMI 28.0
[2017-07-05 01:05] LABS: BASOPHILS 0.3 % (0-2); EOSINOPHILS 2.4 % (0-7); HEMATOCRIT 41.8 % (42.0-54.0); HEMOGLOBIN 13.6 g/dL (13.5-17.5); IMMATURE GRANULOCYTES 0.3 % (0-5); LYMPHOCYTES 21.5 % (15-50); MCH 29.2 pg (26.0-34.0); MCHC 32.5 g/dL (31.0-37.0); MCV 89.7 fL (80.0-100.0); MEAN PLATELET VOLUME 10.2 fL (7.4-10.4); MONOCYTES 10.6 % (2-11); NEUTROPHILS 64.9 % (40-80); PLATELET COUNT 256 10x3/uL (130-400); RBC 4.66 10x6/uL (4.20-6.10); RDW 13.6 % (11.5-14.5); WBC 11.9 10x3/uL (4.8-10.8)
[2017-07-05 01:09] LABS: ALBUMIN 3.4 g/dL (3.4-5.0); ALKALINE PHOSPHATASE 67 U/L (46-116); ALT (SGPT) 37 U/L (10-68); CALC OSMOLALITY 277 mosm/kg (275-300); CALCIUM 8.3 mg/dL (8.5-10.1); CARBON DIOXIDE 29.5 mmol/L (21.0-32.0); CHLORIDE - SERUM 103 mmol/L (98-107); CREATININE - SERUM 0.9 mg/dL (0.6-1.3); GLUCOSE 81 mg/dL (74-106); POTASSIUM - SERUM 3.9 mmol/L (3.5-5.1); SODIUM 140 mmol/L (136-145); UREA NITROGEN 13 mg/dL (7-18); eGFR NON AFRICAN AMERICAN 90 mL/min (90-120)
[2017-07-05 01:21] LABS: CKMB 6.5 U/L (0.0-3.6); CREATINE KINASE 239 UL (21-232); TROPONIN-I 0.044 ng/mL (0.000-0.060)
== END 2017-07-05 01:45 | disposition home or self-care (01) ==
LOC: D.ER 00:12
PROVIDERS: Emergency Medicine
DX: R07.9 Chest pain, unspecified (principal); I10 Essential (primary) hypertension; Z85.828 Personal history of other malignant neoplasm of skin; F17.200 Nicotine dependence, unspecified, uncomplicated; I44.7 Left bundle-branch block, unspecified

== ENCOUNTER 2017-07-18 14:53 | Emergency (ER) | payer MEDICAID ==
[2017-01-04 13:02] VITALS: BMI 28.0
== END 2017-07-18 19:30 | disposition home or self-care (01) ==
LOC: D.ER 14:53
DX: M17.12 Unilateral primary osteoarthritis, left knee (principal); F17.200 Nicotine dependence, unspecified, uncomplicated

== ENCOUNTER 2017-08-31 22:07 | Emergency (ER) | payer MEDICAID ==
[2017-01-04 13:02] VITALS: BMI 28.0
[2017-08-31 23:24] LABS: BASOPHILS 0.6 % (0-2); EOSINOPHILS 5.2 % (0-7); HEMOGLOBIN 12.3 g/dL (13.5-17.5); IMMATURE GRANULOCYTES 0.3 % (0-5); LYMPHOCYTES 32.8 % (15-50); MCH 28.7 pg (26.0-34.0); MCHC 32.4 g/dL (31.0-37.0); MCV 88.6 fL (80.0-100.0); MEAN PLATELET VOLUME 9.5 fL (7.4-10.4); MONOCYTES 9.7 % (2-11); NEUTROPHILS 51.4 % (40-80); PLATELET COUNT 239 10x3/uL (130-400); RBC 4.29 10x6/uL (4.20-6.10); WBC 6.3 10x3/uL (4.8-10.8)
[2017-08-31 23:37] LABS: ALBUMIN 3.1 g/dL (3.4-5.0); ALKALINE PHOSPHATASE 53 U/L (46-116); ALT (SGPT) 53 U/L (10-68); BILIRUBIN - TOTAL 0.41 mg/dL (0.2-1.3); CALC OSMOLALITY 285 mosm/kg (275-300); CALCIUM 8.4 mg/dL (8.5-10.1); CARBON DIOXIDE 30.7 mmol/L (21.0-32.0); CHLORIDE - SERUM 106 mmol/L (98-107); CREATININE - SERUM 0.8 mg/dL (0.6-1.3); GLUCOSE 101 mg/dL (74-106); POTASSIUM - SERUM 3.9 mmol/L (3.5-5.1); PROTEIN - SERUM 6.9 g/dL (6.4-8.2); SODIUM 143 mmol/L (136-145); UREA NITROGEN 14 mg/dL (7-18); eGFR NON AFRICAN AMERICAN > 90 mL/min (90-120)
[2017-08-31 23:49] LABS: CHOL - HDL RATIO 2.3 ratio (2.3-4.9); CHOLESTEROL, TOTAL 99 mg/dL (0-200); CREATINE KINASE 126 UL (21-232); HDL CHOLESTEROL 44 mg/dL (32-96); LDL CHOLESTEROL 45 mg/dL (0-100); TRIGLYCERIDE 50 mg/dL (30-200); TROPONIN-I 0.025 ng/mL (0.000-0.060)
== END 2017-09-01 00:15 | disposition home or self-care (01) ==
LOC: D.ER 22:07
PROVIDERS: Emergency Medicine
DX: I42.9 Cardiomyopathy, unspecified (principal); I44.7 Left bundle-branch block, unspecified

== ENCOUNTER 2017-09-13 14:53 | Emergency (ER) | payer MEDICAID ==
[2017-01-04 13:02] VITALS: BMI 28.0
== END 2017-09-13 17:12 | disposition home or self-care (01) ==
LOC: D.ER 14:53
DX: S39.012A Strain of muscle, fascia and tendon of lower back, initial encounter (principal); X58.XXXA Exposure to other specified factors, initial encounter; Y93.89 Activity, other specified; Y92.89 Other specified places as the place of occurrence of the external cause; F17.200 Nicotine dependence, unspecified, uncomplicated

== ENCOUNTER 2017-12-09 10:58 | Emergency (ER) | payer MEDICAID ==
[~2017-12-09] VITALS: Ht 175.3 cm; Wt 86.4 kg
[2017-12-09 11:02] VITALS: BP 150/86; Ht 175.3 cm; Wt 86.4 kg
== END 2017-12-09 14:44 | disposition left against medical advice (07) ==
LOC: D.ER 10:58
DX: S49.92XA Unspecified injury of left shoulder and upper arm, initial encounter (principal); X58.XXXA Exposure to other specified factors, initial encounter; Y93.9 Activity, unspecified; Y92.9 Unspecified place or not applicable

== ENCOUNTER 2017-12-30 12:01 | Emergency (ER) | payer MEDICAID ==
[~2017-12-30] VITALS: Ht 175.3 cm; Wt 86.4 kg
[2017-12-30 12:22] VITALS: BP 139/60; Ht 175.3 cm; Wt 86.4 kg
[2017-12-30] MEDS ORDERED: K-DUR20 MEQ PO (12:25)
[2017-12-30] MEDS ORDERED: FUROSEMIDE40 MG PO (12:25)
[2017-12-30] MEDS ORDERED: ASPIRIN81 MG PO (12:25)
== END 2017-12-30 15:48 | disposition left against medical advice (07) ==
LOC: D.ER 12:01
DX: M79.605 Pain in left leg (principal)

== ENCOUNTER 2018-04-01 17:04 | Emergency (ER) | payer MEDICAID ==
[~2018-04-01] VITALS: Ht 175.3 cm; Wt 86.4 kg
[~2018-04-01 17:04] MED LIST changes: +FUROSEMIDE40 MG PO
[2018-04-01 17:37] VITALS: Ht 175.3 cm; Wt 86.4 kg
[2018-04-01] MEDS ORDERED: VOLTAREN75 MG PO (18:44)
[2018-04-01] MEDS ORDERED: AMOXICILLIN500 M1 PO (18:44)
[2018-04-01 19:21] VITALS: BP 137/77
== END 2018-04-01 19:22 | disposition home or self-care (01) ==
LOC: D.ER 17:04
DX: J06.9 Acute upper respiratory infection, unspecified (principal); M79.605 Pain in left leg; M79.604 Pain in right leg; R09.89 Other specified symptoms and signs involving the circulatory and respiratory systems; Z86.73 Personal history of transient ischemic attack (TIA), and cerebral infarction without residual deficits; E11.9 Type 2 diabetes mellitus without complications